=== PATIENT | female | born 1985 | race Caucasian/White ===

== ENCOUNTER 2017-05-03 11:47 | Emergency (ER) | payer MEDICAID ==
[~2017-05-03] VITALS: Ht 167.6 cm; Wt 77.1 kg
[~2017-05-03 11:47] MED LIST: ADVIL200 MG PO; BACTRIM DS 8001 TA1 PO; CYCLOBENZAPRINE10 M3 PO; ERYTHROMYCIN250 MG PO; EXCEDRIN TENSIO1 CAP PO; FLEXERIL5 MG PO; HYCODAN 5MG. TAB5 MG PO; KEFLEX 500MG.500 MG PO; KLONOPIN1 MG PO; LORTAB 5/500 501 TAB PO; LORTAB 500 MG-71 TAB PO; MELOXICAM15 MG PO; NAPROXEN SODIU500 MG PO; NOMEDS XX; ORTHO-CYCLEN 351 TA1 PO; PEPCID40 MG PO; PREDNISONE50 MG PO; PROVENTIL0.09 MG/AC IH; SEPTRA DS 800 M1 TAB PO; TESSALON PERLE100 M1 PO; Tramadol HCl50 MG PO; XANAX2 MG PO; ZITHROMAX 250M250 MG PO; ZITHROMAX Z-PA250 M1 PO
--- NOTE | 2017-05-03 12:54 | Emergency Room Report ---
History of Present Illness Time Seen by [email or web address] Presenting Problem in Triage Pt arrived:Walked Presenting Problem:LACERATON TO RIGHT HAND FROM CLIMBING A WIRE FENCE Onset of symptoms date/time:05/03/17 or onset unknown for: Treatment Prior to Arrival: G[employer] POWERPL[employer] MECH[employer]IC Provided by: Sepsis Risk Assessment: Temp: 98.0 B/P: 140/76 MAP: 107 Pulse: 77 Resp: 16 Recent fever? N Clinical Suspician of Infection? Y Mental Status: 1 - Regular (Normal Baseline) Sepsis Risk:Low Sepsis Risk Have you (or family members/close friends) recently traveled outside the [place]? N If Yes, where/when: Have you had exposure to infectious disease within the past month? N TB? Other? Specify: Palmar laceration, right hand, jagged, six cm, occurred at home through fence; TdaP updated on arrival to ED. C/O tingling to right ring finger without any weakness. Is RHD. ALLERGIES Coded Allergies: Penicillins (Intermediate, I-RASH 05/03/17) Home Medications Reported Medications No Home Medications (NO HOME MEDICATIONS) 1 EACH XX ONCE History Medical History General CAD? No Angina: No UT: No Hypertension? No Hyperlipidemia? No CHF? No DVT? No PE? No COPD? No Asthma? Yes Anemia? No GERD? No Gastric ulcers? No GI Bleed? No Hernia? Yes Thyroid Problems? No Hypothyroidism? No CVA? No Seizures? No Diabetes? No Renal Insuffiency? No End Stage Renal Disease? No UTI? Yes Stones? Yes BPH? No GB Disease: Yes Nephritic Syndrome? No Asplenia? No Hepatitis? Yes Sickle Cell Disease? No Arthritis? No Migraines? No Cataracts? No Glaucoma? No MRSA? Yes HIV? No TB? No Anxiety? No Depression? No Cancer? Yes Site: CERVICAL DYSPLASIA More? No Immunization Hx DT/Tetanus > 10 Years Ago Flu NEVER Pneumonia 02/06/12 Surgical Hx Previous Surgery?Y C SECTION X 2 [place] UTERINE ABLATION Tubal Ligation PLATE/6SCREWS LT FIBULA CERVICAL CA REMOVED SWITCHBOARD OPERATOR ASSISTANT Hx LMP N/A Family History Family Hx Diabetes Yes CAD Yes Hypertension Yes Hyperlipidemia Yes Cancer Yes TB No Social History Smoking Hx Smoker: Current Every Day Smoker Tobacco: Yes Type Cigarettes Packs/day < 1 Pack Alcohol Alcohol: No Review of Systems All Other Systems Reviewed and Negative Skin see HPI Psychiatric/Neurological see HPI Physical Exam Vital Signs Vital Signs Date Time Temp Pulse Resp B/P Pulse O2 O2 Flow FiO2 Ox Delivery Rate 05/03 1236 77 16 140/76 100 05/03 1159 98.0 111 18 149/86 99 General Appearance normal appearance, WD/WN, no apparent distress Eye Exam - bilateral eye normal exam, bilateral eye PERRL Respiratory Status Yes: trachea midline. No: respiratory distress. Cardiovascular no peripheral edema, normal peripheral pulses Extremities normal range of motion, normal capillary refill Strength 5 Upper Ext (R) Neurologic alert, normal exam, no motor/sensory deficits (good sens lt touch/ pinprick) Skin normal color, warm/dry, laceration(s), 6 cm jagged laceration, no FB, no bleeding, no tendon or bone exposure; small skin flap on lateral edge. Right palm, center, no digit involvement; each joint moves well when held in isolation ; sensate to light touch and pinprick as well as pressure; well perfused digits and brisk radial pulse. Medical Decision Making LABS/Meds/Orders Pt receiving controlled substance in ED? No Results/Orders Current Medication Orders Sig/Opal Start time Last Medication Dose Route Stop Time Status Admin Diphtheria/Pertussis/ 0 .STK-MED ONE 05/03 1223 DC Tetanus Vacc IM Lidocaine HCl 0 .STK-MED ONE 05/03 1222 DC .ROUTE Diphtheria/Pertussis/ 0.5 ML ONCE ONE 05/03 1215 DC 05/03 Tetanus Vacc IM 05/03 1216 1234 Lidocaine HCl 20 ML ONCE ONE 05/03 1215 DC 05/03 SC 05/03 1216 1235 Lidocaine HCl 0 .STK-MED ONE 05/03 1208 DC .ROUTE Procedures Laceration/Wound Repair Laceration/Wound Repair Risks/benefits discussed with pt/guardian? Yes Tetanus status not up to date (updated today in ED) Wound Location hand Wound Length (cm) 6 Wound's Depth, Shape sucutaneous tissue, irregular Wound Explored no FB identified Risk of retained FB explained to pt/guardian? Yes Irrigated w/ Saline (ccs) 20 Wound Prep Hibiclens Anesthesia 1% Lidocaine Volume Anesthetic (ccs) 9 Wound Debrided minimal Wound Repaired With sutures Suture Size/Type 4:0, Ethilon Layer Closure No Total Number Sutures 9 Sterile Dressing Applied Yes Departure Departure Time of Disposition 1325 Disposition DC Home or Self Care(routine) Clinical Impression Primary Impression: Laceration of right palm Qualifiers: Encounter type: initial encounter Qualified Code: S61.411A - Laceration without foreign body of right hand, initial encounter Condition STABLE Patient Instructions Laceration Repair Additional Instructions Suture removal, MD of choice, see list, one week; no physical labor with right hand until sutures removed. Advil or Aleve over the counter as needed. Discharge Counseling Counseled pt/family regarding diagnosis, medications/RX, home care, follow up needs ED Critical Care Critical Care No at 1329
[2017-05-03 13:34] VITALS: BP 124/76
== END 2017-05-03 13:35 | disposition home or self-care (01) ==
LOC: ER 11:47
PROC: 0HQFXZZ Repair Right Hand Skin, External Approach (ICD-10-PCS; principal; 2017-05-03)
DX: S61.411A Laceration without foreign body of right hand, initial encounter (principal); Z23 Encounter for immunization; Z72.0 Tobacco use; W45.8XXA Other foreign body or object entering through skin, initial encounter

== ENCOUNTER → 2017-07-16 | Outpatient (CLI) | payer MEDICAID ==
--- NOTE | 2017-07-16 11:28 | RADIOLOGY REPORT PS360 ---
CT ABD PELVIS W/O CONTRAST CLINICAL INDICATION: Umbilical hernia, umbilical pain UMBILICAL HERNIA W/O OBSTRUCTION ORDERING PHYSICIAN: Vivi Donovan APRN PATIENT AGE: 31 years COMPARISON: 01/09/2015 TECHNIQUE: Axial images obtained with sagittal and coronal reformats. PROCEDURE: Oral Contrast: None IV Contrast: None . FINDINGS: The lung bases are clear. Prior cholecystectomy without biliary dilatation. The liver, spleen, adrenal glands, and pancreas are unremarkable. No renal calculi or hydronephrosis or ureteral calculi. No obvious renal mass. No adenopathy. No intestinal obstruction or free air. Unremarkable appendix. No evidence of diverticulitis. No pelvic mass or abnormal fluid collection. There are bilateral tubal ligation clips. The right clip is situated in the cul-de-sac region suggesting the possibility of a loose clip. Previously the clip is in the right adnexal region. There is a small supraumbilical hernia which contains fat. There is some minimal stranding of the fat. No acute bony anomalies. IMPRESSION: 1. Small supraumbilical hernia containing fat. There is some minimal stranding of the fat nonspecific but could be seen with inflammation or even incarceration. 2. Bilateral tubal ligation clips are present. The right clip is situated in the cul-de-sac and may represent a loose clip.
== END ==
LOC: RAD 09:00
DX: K42.9 Umbilical hernia without obstruction or gangrene (principal)

== ENCOUNTER → 2017-07-23 | Outpatient (CLI) | payer MEDICAID ==
[2017-07-23 12:25] LABS: HEMOGLOBIN 15.2 g/dL (12.2-16.2); LYMPH # 2.4 K/mm3 (0.7-4.5); LYMPH % 27.1 % (10-50.0)
[2017-07-23 13:05] LABS: URINE BILIRUBIN - DIPSTICK NEGATIVE (NEG); URINE BLOOD NEGATIVE (NEG)
[2017-07-23 13:24] LABS: URINE SQUAMOUS CELLS OCC #/hpf (0-5)
[2017-07-23 13:41] LABS: BUN 13 mg/dL (7-18)
[2017-07-23 13:42] LABS: GFR (ESTIMATED) 97 ML/MIN (59-)
== END ==
LOC: LAB 11:39
PROVIDERS: Surgery
DX: K42.0 Umbilical hernia with obstruction, without gangrene (principal); Z01.812 Encounter for preprocedural laboratory examination

== ENCOUNTER 2017-07-26 08:03 | Day surgery (SDC) | payer MEDICAID ==
[~2017-07-26] VITALS: Ht 167.6 cm; Wt 78.9 kg
--- NOTE | 2017-07-26 10:58 | Operative Note ---
Surgeon/Diagnoses Surgeon/Summer Counselor(s) Date of procedure: 07/26/17 Surgeon: MD Nandini Dunbar Diagnoses Pre-op diagnosis: Supraumbilical hernia Post-op diagnosis Incarcerated supraumbilical hernia and small umbilical hernia Procedure Procedure Procedure: Laparoscopic repair of incarcerated supraumbilical hernia and umbilical hernia Indications: ANNITA GLYNN is a 31 year-old Female with a history of painful hernia just above the umbilicus Findings: 2 cm supraumbilical defect (2 cm above the umbilicus) and 1 cm defect at the umbilicus 15 x 20 cm VentraLight mesh placed in position Procedure Description: After informed consent was obtained, the patient was taken to the operating room and placed in the supine position. General anesthesia was induced and her abdomen was prepped and draped in a sterile fashion. After infiltration with local anesthetic a stab incision was made in the LEFT upper quadrant. A Veress needle was placed in position. The abdomen was insufflated. A 5 mm optical trochars placed in position along the mid LEFT flank. 2 additional 5 mm trocars were placed in the upper/lower flank on the LEFT. Palpation and inspection revealed a defect just above the umbilicus with incarcerated preperitoneal fat. A large amount of incarcerated preperitoneal fat that included a fairly large portion of the falciform was carefully removed. A combination of blunt dissection and a harmonic karen were utilized to complete this maneuver. Once the incarcerated contents were expressed, evaluation reveals a 2 cm defect in the suprapubic umbilical position and a once in her meter defect at the umbilicus. Incarcerated adipose tissue was removed carefully through the 5 mm trocars. 2 additional 5 mm trocars were placed in the RIGHT flank and a 12 mm trocar was placed through an incision at the supra umbilical defect. A 15 x 20 cm VentraLight mesh was placed in an underlay fashion and secured with OptiFix tacks. The insufflation balloon was easily removed through the central trocar. With the mesh in position careful valuation revealed no sign of active bleeding and no sign of injury. Pneumoperitoneum was released as all trocars were removed. All wounds were irrigated and skin was closed with 4-0 Monocryl in a subcuticular fashion. Steri-Strips were applied. The patient's anesthetic agents were reversed and she was extubated prior to transfer to recovery. EBL (ml): 10 Anesthesia: GETA Complications: No immediate Specimens: None Disposition Disposition: Stable to recovery from where she will be discharged home. She will follow-up in 1-2 weeks. at 1932
--- NOTE | 2017-07-26 11:05 | Anesthesia Record ---
Anesthesia Record Part I Total IV fluids: 900 EBL (ml): 25 Urine Output: 100 B/P: 131/81 % SaO2: 91 Pulse: 84 Resps: 18 Temp: 97.0 Patient is: Nasal O2, Stable Stable to PACU at: 1102 at 1105
--- NOTE | 2017-07-26 11:06 | Anesthesia Record ---
Anesthesia Record Part II Discharge time: 1132 Destination: Same day surgery PACU nurse assessment review? Yes Patient is: Stable Anesthesia complications? No at 1103
[2017-07-26 14:43] VITALS: BP 113/77
[2017-07-26 15:18] LABS: URINE BILIRUBIN - DIPSTICK NEGATIVE (NEG); URINE BLOOD NEGATIVE (NEG)
[2017-07-26 15:28] LABS: URINE SQUAMOUS CELLS OCC #/hpf (0-5)
== END 2017-07-26 13:15 | disposition home or self-care (01) ==
LOC: SDC 08:03
PROVIDERS: Surgery
PROC: 0WUF4JZ Supplement Abdominal Wall with Synthetic Substitute, Percutaneous Endoscopic Approach (ICD-10-PCS; principal; 2017-07-26 09:15)
DX: K43.6 Other and unspecified ventral hernia with obstruction, without gangrene (principal); K42.9 Umbilical hernia without obstruction or gangrene
CPT/HCPCS: C1781; J0131; J2405; J2710

== ENCOUNTER → 2017-08-14 | Outpatient (CLI) | payer MEDICAID ==
--- NOTE | 2017-08-14 13:15 | RADIOLOGY REPORT PS360 ---
CHEST(2 VIEWS-NOT PORTABLE) HISTORY: COUGH ORDERING PHYSICIAN: Axel Navarrete MD PATIENT AGE: 31 years COMPARISON: 07/19/2014 FINDINGS: The cardiomediastinal silhouette and pulmonary vascularity are within normal limits. The lungs are clear without infiltrates, suspicious nodules, or pleural effusions. No acute bony abnormalities. IMPRESSION: Negative chest, no acute finding
== END ==
LOC: RAD 12:17
DX: R05 Cough (principal)